=== PATIENT | female | born 1980 | race Caucasian/White ===

== ENCOUNTER 2023-04-26 12:28 | Emergency (ER) | payer BC ==
--- NOTE | 2023-04-26 13:52 | ED Physician Documentation ---
History of Present Illness - Stated complaint Stated Complaint: C+ FEVER/ACHES/SOA - Chief complaint Chief Complaint: General - History obtained from History obtained from: Patient - Additonal information Additional information: 43-year-old female presents with her due to COVID symptoms. She has been exposed because her who is known to be COVID-positive and the patient developed fever, body aches, cough and cold symptoms over the last couple of days. She feels nauseous and has not wanted to eat much. No abdominal pain, no rash, no neck pain or stiffness, no dysuria urgency or frequency. She has no underlying lung disease. She has not attempted any medication for this issue. Review of Systems Constitutional: reports: Fever, Chills, Myalgias Eyes: reports: Reviewed and negative Ears: reports: Reviewed and negative Nose: reports: Rhinorrhea / runny nose, Congestion Throat: reports: Sore throat Cardiac: reports: Reviewed and negative Respiratory: reports: Dyspnea, Cough, Wheezing GI: reports: Nausea, Vomiting. denies: Abdominal Pain, Constipation, Diarrhea : reports: Reviewed and negative PD PAST MEDICAL HISTORY - Past Medical History Past Medical History: No Cardiovascular: None Respiratory: None Neuro: None Endocrine/Autoimmune: None GI: None [employer]: None : None HEENT: None Psych: None Musculoskeletal: None Derm: None - Past Surgical History Past Surgical History: No - Present Medications Home Medications: Ambulatory Orders Medication Instructions Recorded Confirmed Albuterol Sulf [Ventolin Hfa 1 - 2 puffs INH Q4HR PRN #18 gm 04/26/23 Inhaler] Benzonatate [Tessalon] 200 mg PO TID PRN #30 cap 04/26/23 Ibuprofen [Motrin] 1 tablet PO Q8H PRN #30 tablet 04/26/23 Ondansetron Odt [Zofran Odt] 4 mg TL Q6H PRN #10 tablet 04/26/23 - Allergies Allergies/Adverse Reactions: Allergies Allergy/AdvReac Type Severity Reaction Status Date / Time No Known Drug Allergies Allergy Verified 04/26/23 12:37 - Social History Does the pt smoke?: No Smoking Status: Never smoker Does the pt drink ETOH?: No Does the pt have substance abuse?: No - Immunizations Immunizations are current?: Yes PD ED PE NORMAL - Vitals Vital signs reviewed: Yes - General General: Alert and oriented X 3, No acute distress, Well developed/nourished - HEENT HEENT: Atraumatic, Pharynx benign - Cardiac Cardiac: RRR, No murmur, No gallop, No rub - Respiratory Respiratory: No respiratory distress, Clear bilaterally - Abdomen Abdomen: Normal bowel sounds, Soft, Non tender, Non distended Results - Vitals Vitals: Vital Signs - 24 hr 04/26/23 04/26/23 12:37 14:09 Temperature 38.5 C H 37.1 C Heart Rate 98 78 Respiratory 16 14 Rate Blood Pressure 130/65 118/78 O2 Saturation 99 98 Oxygen O2 Source Room air PD Medical Decision Making - ED course Complexity details: considered differential, d/w patient ED course: 43-year-old female presents with cough and URI symptoms, fever, nausea and known exposure to a COVID-positive person in the household. There are number of people with COVID in the household. This it is very likely the patient has COVID given her exposure and symptoms. I discussed treatment with patient occluding primarily supportive treatment we did review use of paxlovid. Patient mainly would like medication for cough and bodyaches as well is nausea. I have prescribed her Zofran, albuterol for wheezing, cough medication and she can take [id number] Tylenol and ibuprofen. She was Encouraged to get plenty of rest, stay well-hydrated, and stay home until symptoms improve. Did discuss return precautions in detail with the patient and she is stable for discharge home. Departure - Departure Disposition: 01 Home, Self Care Clinical Impression: COVID-19 Condition: Good Instructions: ED Viral Syndrome Prescriptions: Albuterol Sulf [Ventolin Hfa Inhaler] 1 - 2 puffs INH Q4HR PRN #18 gm PRN Reason: Shortness Of Air/Wheezing Ibuprofen [Motrin] 1 tablet PO Q8H PRN #30 tablet PRN Reason: PAIN &/OR FEVER Benzonatate [Tessalon] 200 mg PO TID PRN #30 cap PRN Reason: Cough Ondansetron Odt [Zofran Odt] 4 mg TL Q6H PRN #10 tablet PRN Reason: Nausea / Vomiting Comments: Please get plenty of rest, oral fluids, and you can take ibuprofen and Tylenol for your aches and pains or fever. I have also prescribed you some Zofran which is a nausea medicine that dissolves under the tongue or in the cheek. You have also received a prescription for albuterol as an inhaler to use as needed for wheezing. Symptoms typically last 7 to 10 days and will improve on their own. If you have worsening symptoms then return to the ER. Forms: PCP List Discharge Date/Time: 04/26/23 14:31
[2023-04-26 14:21] VITALS: BP 118/78; O2SAT 98
== END 2023-04-26 14:31 | disposition home or self-care (01) ==
LOC: ED 12:28
DX: U07.1 COVID-19 (principal)
CPT/HCPCS: 99282; 99283